=== PATIENT | female | born 1955 | race Two or more races ===

== ENCOUNTER 2017-01-29 10:04 | Day surgery (SDC) | payer OTHER ==
[2017-01-29] VITALS (9 sets, daily range): BP systolic 101–150; BP diastolic 56–75
[~2017-01-29] VITALS: Ht 167.6 cm; Wt 83.9 kg
--- NOTE | 2017-01-29 06:57 | Pre-Procedure Note/Attestation ---
Pre-Procedure Note/Attestation Complete Prior to Procedure Planned Procedure: right Procedure Narrative: rt shoulder scope, FULL gumaro, pancapsular release, possible RTC repair Indications for Procedure Pre-Operative Diagnosis: rt shoulder impingement Attestation I attest that I discussed the nature of the procedure; its benefits; risks and complications; and alternatives (and the risks and benefits of such alternatives ), prior to the procedure, with the patient (or the patient's legal business services sales representative). I attest that, if there was a reasonable possibility of needing a blood transfusion, the patient (or the patient's legal business services sales representative) was given the [place] [employer] standardized written summary, pursuant to the Asael Rosa Blood Safety Act ([place] Health and Safety Code # 1645, as amended). I attest that I re-evaluated the patient just prior to the surgery and that there has been no change in the patient's H&P, except as documented below:NONE MARTA FRENCH Jan 29, 2017 06:57
[~2017-01-29 10:04] MED LIST: ceFAZolin 1gm in D5W 55ml IVP ONE; celeBREX 200mg Cap **SURGERY PATIENTS ONLY ORAL ONE; oxyCONTIN 20mg tab ORAL ONE
[2017-01-29] MEDS ORDERED: Bupivacaine w/Epi 0.5% 30ml Vial INJ ONE (10:10)
[2017-01-29] MEDS ORDERED: Ropivacaine 5mg/ml Vial 20ml INJ ONE (10:13)
--- NOTE | 2017-01-29 10:23 | Anethesia Preoperative Eval ---
Anesthesia Pre-op PMH/ROS General Date of Evaluation: Jan 29, 2017 Anesthesiologist: Brandyn ASA Score: ASA 2 Mallampati Score Class I : Soft palate, uvula, fauces, pillars visible Class II: Soft palate, uvula, fauces visible Class III: Soft palate, base of uvula visible Class IV: Only hard plate visible Mallampati Classification: Class III Surgeon: Carlita Diagnosis: Right shoulder osteoarthritis, torn rotator cuff Surgical Procedure: Right shoulder arthroscopy, full gumaro repair Anesthesia History: none Family History: no anesthesia problems Allergies: Coded Allergies: No Known Allergies (Unverified , 01/25/17) Medications: see eMAR Past Medical History Cardiovascular: Denies: CAD, HTN, [place], arrhythmia, other, valve dz Pulmonary: Denies: COPD, ANABELLA, asthma, other Gastrointestinal/Genitourinary: Denies: CRI, ESRD, GERD, other Neurologic/Psychiatric: Denies: CVA, TIA, dementia, depression/anxiety, other Endocrine: Reports: hypothyroidism, Denies: DM, other, steroids HEENT: Denies: [place] (L), [place] (R), cataract (L), cataract (R), glaucoma, other Hematology/Immune: Denies: DVT, anemia, bleeding disorder, other Musculoskeletal/Integumentary: Reports: OA, Denies: DDD, DJD, RA, edema, other PSxH Narrative: Left shoulder sx Anesthesia Pre-op Phys. Exam Physician Exam see chart Constitutional: NAD, other - +thyroid mass on palpation Cardiovascular: RRR Respiratory: CTA Airway Exam Mallampati Score: Class II MO: limited ROM: limited Teeth: intact Anesthesia Pre-op A/P Labs see chart Studies Pre-op Studies: EKG - nsr\ Risk Assessment & Plan Assessment: ASA II Plan: GA Status Change Before Surgery: No Pre-Antibiotics Drug: Ancef 2g Given Within 1 Hr of Incision: Yes Time Given: 11:30 SANDY SOLIS M.D. Jan 29, 2017 10:23
[2017-01-29] MEDS ORDERED: LR 1000ml 1,000 ML IVLG SCH ×2 (10:30→12:06)
[2017-01-29] MEDS ORDERED: NAPROXEN500 M2 ORAL (10:52)
[2017-01-29] MEDS ORDERED: LEVOTHYROXINE75 MCG ORAL (10:52)
[2017-01-29] MEDS ORDERED: Ketamine 500mg Inj ONE (11:00)
[2017-01-29] MEDS ORDERED: Midazolam 2mg/2ml Inj ONE (11:00)
[2017-01-29] MEDS ORDERED: NS Irrig 4000ml IRRIG ONE (11:00)
[2017-01-29] MEDS ORDERED: Ketorolac 30mg Inj ONE (11:00)
[2017-01-29] MEDS ORDERED: LR 1000ml ONE (11:00)
[2017-01-29] MEDS ORDERED: Lidocaine 1% MPF 10mg/ml 5ml ONE (11:00)
[2017-01-29] MEDS ORDERED: Metoclopramide 10mg/2ml Inj ONE (11:00)
[2017-01-29] MEDS ORDERED: Propofol 10mg/ml 20ml IV ONE (11:00)
[2017-01-29] MEDS ORDERED: Dexamethasone 4mg/ml vial ONE (11:00)
[2017-01-29] MEDS ORDERED: Nimbex 2mg/ml Inj 10ML IVP ONE (11:00)
[2017-01-29] MEDS ORDERED: fentaNYL 250mcg/5ml ONE (11:00)
[2017-01-29] MEDS ORDERED: LORazepam Inj 2mg/ml 1ml IV PRN (12:15)
[2017-01-29] MEDS ORDERED: Hydromorphone 0.5mg/0.5ml inj IVP PRN (12:15)
[2017-01-29] MEDS ORDERED: Tylenol #3 tab (300mg/30mg) ORAL PRN (12:15)
[2017-01-29] MEDS ORDERED: D5 1/2NS 1,000 ML IV SCH (12:15)
[2017-01-29] MEDS ORDERED: Ketorolac 30mg Inj IV PRN (12:15)
[2017-01-29] MEDS ORDERED: fentaNYL 100 mcg/2 mL IV PRN (12:15)
[2017-01-29] MEDS ORDERED: HYDROmorphone 1mg/ml Carpuject SUBQ PRN (12:15)
[2017-01-29] MEDS ORDERED: Midazolam 2mg/2ml Inj IVP PRN (12:15)
[2017-01-29] MEDS ORDERED: DiphenhydrAMINE 50mg/ml Inj IVP PRN (12:15)
[2017-01-29] MEDS ORDERED: Metoclopramide 10mg/2ml Inj IVP PRN (12:15)
[2017-01-29] MEDS ORDERED: Norco 5mg/325mg tab ORAL PRN (12:15)
--- NOTE | 2017-01-29 12:38 | Brief Operative Note ---
Immediate Post Operative Note Operative Note Chief Complaint: rt shoulder pain Pre-op Diagnosis: rt shoulder impingement Procedure: rt shoulder scope, SAD, full gumaro Post-op Diagnosis: same as pre-op Findings: consistent w/pre-op dx studies Surgeon: md alex Radiation Oncologist: abhay gutiérrez Anesthesiologist: md tamia Anesthesia: general Specimen: none Complications: none Condition: stable Estimated Blood Loss: minimal Drains: none Implant(s) used?: No KIARA GUTIÉRREZ Jan 29, 2017 12:38
--- NOTE | 2017-01-29 12:51 | Immediate Post-Op Evaluation ---
Immediate Post-Op Evalulation Immediate Post-Op Evalulation Procedure: Right shoulder arthroscopy, full gumaro repair Date of Evaluation: Jan 29, 2017 Time of Evaluation: 12:53 IV Fluids: 1.4L Blood Products: 0 Estimated Blood Loss: 50 Urinary Output: 0 Blood Pressure Systolic: 107 Blood Pressure Diastolic: 56 Pulse Rate: 58 Respiratory Rate: 16 O2 Sat by Pulse Oximetry: 97 Temperature (Fahrenheit): 97 Pain Score (1-10): 0 Nausea: No Vomiting: No Complications 0 Patient Status: awake, reacts, patent, none Hydration Status: adequate Drug: Ancef 2g Given Within 1 Hr of Incision: Yes Time Given: 11:30 SANDY SOLIS M.D. Jan 29, 2017 12:51
--- NOTE | 2017-01-29 18:15 | Operative Note - Dictated ---
DATE OF OPERATION: 01/29/2017 PREOPERATIVE DIAGNOSES: 1. Right shoulder subacromial impingement. 2. Right shoulder possible adhesive capsulitis. 3. Right shoulder acromioclavicular joint arthritis. POSTOPERATIVE DIAGNOSES: 1. Right shoulder superior as well as anterior labral fraying and tearing without the detachment from glenoid. 2. Right shoulder articular sided rotator cuff tear involving 20% rotator cuff. 3. Right shoulder chondral damage over the superior aspect of the humeral head with grade 3 chondromalacia measuring 1 x 1 cm. 4. Right shoulder subacromial impingement. 5. Right shoulder AC joint arthritis with bone spurs. PROCEDURES: 1. Right shoulder arthroscopy and extensive intra-articular shaving. 2. Right shoulder superior as well as anterior debridement repair of the labrum without suture anchors. 3. Right shoulder debridement of the rotator cuff on the articular side. 4. Right shoulder subacromial bursoscopy, bursectomy, and subacromial decompression. 5. Right shoulder full Nyla procedure (resection of the distal 1 cm of the clavicle). SURGEON: Jerson Zazueta M.D. PATIENT ATTENDANT: Shell Rubio PA-C. Materials Planning Manager was present during the actual operative portion of the case and was important and essential part of the operation. During the operation, the academic support assistant held and operated the arthroscopic camera for visualization, assisted by manipulating the arm to help with visualization, and helped with essential parts of the repair process as necessary such as operating surgical instruments under surgeon supervision, suture management, and wound closures. ANESTHESIOLOGIST: Magalie Ahumada M.D. ANESTHESIA: General LMA anesthesia combined with interscalene block. EBL: Less than 28 mL. COMPLICATIONS: None. SURGICAL INDICATION: The patient is a 61-year-old female who sustained the above injury to her shoulder. The patient was treated non-operative initially, but this did not alleviate the patients symptoms. Therefore, after discussing all non-surgical and surgical options, and discussing all foreseeable risk and benefits of surgery, the patient opted for surgical treatment as described above. PATIENT POSITIONING: Patient was brought to the operating room table and was placed on the operating room table. All pressure points were well padded. General anesthesia was induced and patient was then placed in the lateral decubitus position. All pressure points were well padded again and an axillary roll was placed. Patient shoulder was then prepped and draped in the usual sterile fashion. Time out was performed and the appropriate preoperative antibiotic was given by the anesthesiologist. EXAMINATION OF SHOULDER UNDER ANESTHESIA: The shoulder was examined under anesthesia with all muscles well relaxed. The shoulder was forward flexed, abducted and was placed through full range of external and internal rotation. The anterior, posterior, and inferior stability of the shoulder was checked. The exam revealed no evidence of adhesive capsulitis and no evidence of instability. PORTAL PLACEMENT: The posterior portal was established 2 cm inferior and 1 cm medial to the edge of the posterior acromion. 1 cm skin incision was made using an eleven blade and using the blunt obturator, the cannula was gently placed through the capsule. The midglenoid portal was established just lateral to the coracoid process under direct visualization. Direction of the cannula was first established using a spinal needle, and subsequently, the cannula was placed through the capsule with a blunt obturator. DIAGNOSTIC ARTHROSCOPY: The biceps tendon was probed and pulled through the joint for visualization. It appeared normal. The biceps anchor was palpated with a probe and was visualized. There was some fraying of the superior labrum including anterior as well as posterior. However, there was no detachment from glenoid. This was tear of the labrum, but no detachment from glenoid. The posterior labrum and axillary recess was visualized. This was normal and there was no evidence of loose cartilage or fragments in this area. The glenoid articular surface was visualized and it appeared normal. The articular surface of the rotator cuff was visualized and probed next. There was articular side rotator cuff tear measuring 20% rotator cuff. This was marked with a needle and later it was noted that there was no full-thickness tear. The Humeral head articular surface was then visualized. There was some chondral damage over the superior aspect of the humeral head measuring 1 x 1 cm at the level of the articular sided rotator cuff tear. However, there was no full-thickness chondral damage. Next the anterior labrum, middle gleno-humeral ligament, subscapularis tendon, and the anterior inferior gleno-humeral ligament were evaluated. These structures were completely normal. At this point, the scope was moved to the midglenoid portal and the posterior structures including the posterior labrum, posterior capsule and posterior cuff were visualized. These structures were completely normal. The subscapularis recess was devoid of any loose bodies and the anterior capsule was well attached to the humeral neck. The middle and anterior inferior glenohumeral ligament was visualized. These structures were completely normal. OPERATIVE DEBRIDEMENTS AND REPAIR: Care was given to all partial thickness tears and frayed structures in the shoulder joint. The frayed rotator cuff and labrum was debrided using a shaver initially through the anterior portal and subsequently through the posterior portal to complete the debridement. This allowed for smooth debridement of all affected structures and all loose fragments were removed. DIAGNOSTIC BURSASCOPY AND SUBACROMIAL DECOMPRESSION: The subacromion bursa was entered from the posterior portal. The anterior portal was established under the CA ligament using a switching stick. Subacromial arthroscopy was initiated. There was extensive bursitis and thickened and inflamed bursa tissue present. The CA ligament appeared to be scuffed and frayed. The shaver was placed through the anterior cannula and debridement of the hypertrophic bursa tissue was accomplished. Once visualization was adequate, a lateral portal was established using a blunt trochar in the mid portion of the acromion bone in the anterior-posterior direction and approximately 2 cm lateral to the lateral edge of the acromion. Using combination of shaver and electrocautery, the CA ligament was released from the undersurface of the acromion and a complete bursectomy was accomplished. At this point, a subacromial decompression was performed using a vincent initially taking off 5-8 mm of the anterolateral edge of the acromion from the lateral portal and viewing from the posterior portal. Then the lateral border of the undersurface of the acromion was decompressed to the same dept as the anterolateral edge. A posterior trough was then created in the acromion in line with the posterior edge of the clavicle. At this point, the scope was placed in the lateral portal and the subacromial decompression was performed from the posterior portal decompressing the undersurface of the acromion to dept of 5-8 mm. The decompression was performed anterior to the previously marked trough all the way medially to the level of the AC joint. At all times, care was given not to take off too much bone in order to avoid risk of fracture of the acromion. An excellent subacromial decompression was performed in this fashion. At this point, the bursal side of the rotator cuff was examined. All the bursa over the rotator cuff was removed and the rotator cuff was examined with a probe. The arm was placed into external rotation, neutral, and then internal rotation and there was no evidence of tear of the rotator cuff. The scope was then placed in the posterior portal and the subacromial decompression was rechecked to assure there is no area of bone spur that would be still impinging onto the rotator cuff. EVALUATION OF DISTAL CLAVICLE AND DISTAL CLAVICLE RESECTION: Care was given to the distal end of the clavicle. Using electrocautery and aicha, the distal end of the bursa and soft tissue around the distal end of the clavicle was debrided and cleaned. Care was given not to inflict excessive trauma to the ligaments of the AC joint. The distal end of the clavicle appeared to have an inferior osteophyte extending down well bellow the level of the acromion at the level of the AC joint. This appeared to be impinging onto the supraspinatus muscle belly and the musculotendinous junction of the rotator cuff. The entire AC joint appeared to be arthritic as well. A full Nyla procedure was then performed resecting the distal 1 cm of the clavicle using a vincent. The resection was initially performed from the posterior portal and view from the lateral portal, and it subsequently completed viewing from the posterior portal and resecting through the anterior portal with a vincent to assure adequate and even resection. Care was given not to damage the superior acromioclavicular ligaments or the coracoacromial ligaments. The extend of the resection was measured by measuring the distance between two spinal needles that were placed perpendicularly through the skin at the edge of the acromion and distal clavicle. CONDITION AT DISCHARGE FROM OPERATING ROOM: The skin was re-approximated and sterile dressing and sling were applied. All lap counts and instrument counts were correct. Patient tolerated the procedure well without complications and was taken to the recovery room in stable conditions. Jerson Zazueta M.D. DR: WON JOB#: [id number] CC:
[2017-01-30 12:02] VITALS: BP 131/59
--- NOTE | 2017-01-30 12:02 | 48 Hour Post Anesthesia Eval ---
Post Anesthesia Evaluation Procedure: Right shoulder arthroscopy, full gumaro repair Date of Evaluation: Jan 29, 2017 Time of Evaluation: 14:30 Blood Pressure Systolic: 131 0: 59 Pulse Rate: 63 Respiratory Rate: 20 Temperature (Fahrenheit): 97 O2 Sat by Pulse Oximetry: 94 Airway: patent Nausea: No Vomiting: No Pain Intensity: 1 Hydration Status: adequate Cardiopulmonary Status: at baseline Mental Status/LOC: patient returned to baseline Post-Anesthesia Complications: 0 Follow-up care needed: ready to discharge SANDY SOLIS M.D. Jan 30, 2017 12:02
== END 2017-01-29 15:00 | disposition home or self-care (01) ==
LOC: SUR 10:04
DX: M75.41 Impingement syndrome of right shoulder (principal); S43.431A Superior glenoid labrum lesion of right shoulder, initial encounter; X58.XXXA Exposure to other specified factors, initial encounter; Y92.63 Factory as the place of occurrence of the external cause; Y99.0 Civilian activity done for income or pay; M75.101 Unspecified rotator cuff tear or rupture of right shoulder, not specified as traumatic; M94.211 Chondromalacia, right shoulder; M19.011 Primary osteoarthritis, right shoulder; M75.91 Shoulder lesion, unspecified, right shoulder; M19.90 Unspecified osteoarthritis, unspecified site; E03.9 Hypothyroidism, unspecified
CPT/HCPCS: 94003; 94150; J2250; J2405; J2765